=== PATIENT | female | born 2005 | race Caucasian/White ===

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

== ENCOUNTER 2025-01-16 21:33 | Emergency (ER) | payer OTHER, SELFPAY ==
--- NOTE | ~2025-01-16 | XR_ITS ---
CLINICAL HISTORY: fall pain 4 view facial bones Comparison: None provided Findings: Bones are intact. No sinus fluid. Mastoids are clear. No radiopaque foreign body. The visualized paranasal sinuses appear clear. Normal outline of the sella turcica. The orbital floors are intact. IMPRESSION: 1. No acute findings This document has been electronically signed by: Jd Camara MD on 01/16/2025 23:42:01
[2025-01-16 21:39] VITALS: BP 110/70; PULSE 115; O2SAT 96
[2025-01-16 21:41] VITALS: BP 106/64; PULSE 111; RESP 16; TEMP 36.4; O2SAT 97
[2025-01-16 21:44] VITALS: BP 101/69; PULSE 112; RESP 16; O2SAT 97; BMI 17.2
--- OUTSIDE RECORDS SUMMARY | 2025-01-16 22:09 | XMS_ITS ---
Author Name [facility] Organization Unknown Care Team Organization Name Specialty Phone Email Start Date End Da te [facility] SAYRA BROWN Primary Care 08/05/2022 11/17/2023 [facility] ANTONY TAO Primary Care 02/05/2022
--- OUTSIDE RECORDS SUMMARY | 2025-01-16 22:09 | XMS_ITS | Clinical Summary ---
Author Organization [facility] Address [address] [place] [id number] Phone Care Team Providers Care Baseball Hand Sewer Name Role Phone Unavailable Primary Care Provider Unavailabl e Immunizations Immunization Administration Dates Next Due DTaP / Hep B / IPV 2004 Hep B, ped/adol 2004 Hib (HbOC) 2004 Pneumococcal Conjugate 2004 Family History Relation Name Status Comments Father Alive Father: Alive a nd well Mother Alive Mother: Migrain es, Depression Social History Tobacco Use Types Packs/Day Years Used Date Smoking Tobacco: Never Assessed Comments Unknown Sex and Gender Information Value Date Recorded Sex Assigned at Not on file Legal Sex Female 4:11 PM EDT Gender Identity Not on file Sexual Orientation Not on file Plan of Treatment Health Maintenance Due Date Last Done Comments IPV Vaccines (2 of 3 - 4-dos e series) 2004 2004 Hepatitis B Vaccines (3 of 3 - 3-dose series) 01/15/2005 2004, 2004 MMR Vaccines (1 of 1 - Standard series) 2005 Varicella Vaccines (1 of 2 - 13+ 2-dose series) 2017 HPV Vaccines (1 - 3-dose series) 07/17/2019 Men B Vaccine (1 of 2 - Standard) 2020 DTaP,Tdap,and Td Vaccines (2 - Tdap) 2022 2004 Influenza Vaccines (#1) 2024 COVID-19 Vaccine (1 - 2024-2 6 season) 2024 HIB Vaccines Aged Out 2004 No longer eligi ble based on patient's age to complete this topic Pneumococcal Vaccine Aged Out 2004 No long er eligible based on patient's age to complete this topic Hepatitis A Vaccines Aged Out No long er eligible based on patient's age to complete this topic Meningococcal Vaccine Aged Out No kaylene beny eligible based on patient's age to complete this topic
--- OUTSIDE RECORDS SUMMARY | 2025-01-16 22:09 | XMS_ITS | Encounter Summary ---
Author Organization [facility] Address [address] [place] [address] Phone Care Team Providers Care Guitar Repairer Name Role Phone Chloe Santiago MD Primary Care Provider [phone] Encounter Details Date Type Department Care Team (Late st Contact Info) Description 11/14/2016 Conversion Encounter [facility] [place] [address] [place] [address] Social History Tobacco Use Types Packs/Day Years Used Date Smoking Tobacco: Never Assessed Comments Unknown Sex and Gender Information Value Date Recorded Sex Assigned at Not on file Legal Sex Female 4:11 PM EDT Gender Identity Not on file Sexual Orientation Not on file documented as of this encounter Plan of Treatment Not on file documented as of this encounter Visit Diagnoses Not on filedocumented in this encounter Care Teams Guitar Repairer Relationship Specialty Start Date End Date Chloe Santiago MD [address] [place] [address] PCP - General 11/08/16 09/22/22 documented as of this encounter
--- NOTE | 2025-01-16 22:29 | ED.ALCOHOL ---
HPI - Alcohol General Chief Complaint: ETOH/Substance Use Stated Complaint: ETOH INTOX,WALKED INTO WALL FROM [employer] Time Seen by Provider: 01/16/25 22:26 Source: patient Mode of arrival: ambulatory Limitations: no limitations History of Present Illness ED Provider: Jeovany KUMAR HPI narrative: The patient is a 19-year-old otherwise healthy female who presents to the ED via EMS after she accidentally walked into a wall and a dark onto the house. The patient admits she did drank 4 shots of vodka throughout the evening, denies other substance use. The patient reports she was walking and not running when she struck the wall. Patient developed pain in the nose with the associated epistaxis. The patient subsequently vomited prompting the facility/patient's friends friends to activate EMS. The patient denies loss of consciousness or anticoagulation, denies neck pain or headache. The patient's epistaxis resolved prior to arrival in the ED. Related Data Home Medications ?Medication ?Instructions ?Recorded ?Confirmed epinephrine 0.15 mg/0.3 mL 1 IM DIRECTED anaphylaxis 01/09/22 injection,auto-injector Previous Rx's ?Medication ?Instructions ?Recorded azithromycin 250 mg tablet See Rx Instructions PO .COMPLEX #6 01/01/22 tabs Allergies Allergy/AdvReac Type Severity Reaction Status Date / Time amoxicillin Allergy Intermediate Rash Verified 01/16/25 21:45 peanut Allergy Anaphylaxis Verified 01/16/25 21:46 Review of Systems Review of Systems: Yes all other systems are reviewed and are negative PMFSH Social History Social History (Updated 01/01/22 @ 08:33 by Sharee Escobedo [facility]) Household Members: Family Patient Tobacco Use Status: Never used Tobacco Smoked in Last 30 Days: No Use of substances other than those prescribed or required for medical reasons: No Advance Directives: No Advance Directives Information Provided: No Patient : No Physical Exam ED Vital Signs: Vital Signs - 24 hr 01/16/25 21:41 01/16/25 21:44 Temperature 97.5 F Pulse Rate 111 H 112 H Respiratory Rate 16 16 Blood Pressure 106/64 101/69 Pulse Oximetry 97 97 Oxygen Delivery Method Room Air Room Air BMI result Body Mass Index 17.2 CONSTITUTIONAL: The patient appears non-toxic, well nourished and in no acute distress. Vital signs as documented. HEAD: Atraumatic, normocephalic. EYES: EOMs intact, pupils equal and reactive to light, conjunctiva clear, no exudate. ENT: There is contusion and swelling noted to the bridge of the nose. Nares patent, no septal hematoma, there is dried blood noted from the left nostril, no active bleeding or discharge. Airway patent, no audible stridor, visible mucosa is pink and moist without noted lesions. NECK: Trachea is midline, no obvious masses or gross abnormalities. CHEST: Symmetric movement, normal appearance. LUNGS: LS present and CTAB, no w/r/r. Non-labored work of breathing. CARDIAC: Regular Rhythm, S1/S2 appreciated, no murmurs, rubs or gallops. ABDOMEN: Abdomen soft and non-tender x4 quadrants, no palpable masses or organomegaly. : Deferred. EXTREMITIES: Normal tone, moves all extremities spontaneously without reported pain. No obvious acute injury or deformity noted. NEURO: Alert and oriented x3, CN II-XII intact. Cerebellar Functioning intact. No sensory or motor deficits. Strength 5/5 x4. Speech clear and appropriate. PSYCH: normal affect, appropriate eye contact, fluid speech, with appropriate response to questioning. No reported suicidality or homicidality. SKIN: Warm, dry, color appropriate, normal turgor. No rashes noted. Medical Decision Making Medical Decision Making MDM Narrative: 12:04 AM 01/17/2025 (Mik KUMAR): The patient is a 19-year-old otherwise healthy female who presents to the ED via EMS after she accidentally walked into a wall and a dark onto the house. The patient admits she did drank 4 shots of vodka throughout the evening, denies other substance use. The patient reports she was walking and not running when she struck the wall. Patient developed pain in the nose with the associated epistaxis. The patient subsequently vomited prompting the facility/patient's friends friends to activate EMS. The patient denies loss of consciousness or anticoagulation, denies neck pain or headache. The patient's epistaxis resolved prior to arrival in the ED. On exam the patient has contusion of the bridge of the nose, however there is no unilateral deviation of the nose, no septal hematoma, no active epistaxis. The patient's neuro exam is benign, no focal deficit, no indication for CT imaging. The remainder of exam is benign. Facial bone x-ray show no evidence of nasal bone fracture. The patient's mother is present in the ED with her, and patient will be under her care this evening. Patient's mother states she is comfortable with plan for discharge and outpatient follow up. Patient will be treated with ibuprofen and Tylenol and discharged to her mother's care. Admission/Observation Consideration of admission/observation: Escalation of care including admission/observation considered Radiology Impression Discussion of test interpretation with radiology: I have reviewed the radiologist's reading. Radiologist Impression: 4 view facial bones Comparison: None provided Findings: Bones are intact. No sinus fluid. Mastoids are clear. No radiopaque foreign body. The visualized paranasal sinuses appear clear. Normal outline of the sella turcica. The orbital floors are intact. IMPRESSION: 1. No acute findings This document has been electronically signed by: Jd Camara MD on 01/16/2025 23:42:01 Discharge Plan Discharge Clinical Impression: Alcohol intoxication Qualifiers: Complication of substance-induced condition: uncomplicated Qualified Code(s): F10.920 - Alcohol use, unspecified with intoxication, uncomplicated Contusion of nose Qualifiers: Encounter type: initial encounter Qualified Code(s): S00.33XA - Contusion of nose, initial encounter Patient Disposition: Home, Self-Care Instructions: Alcohol Intoxication (ED), Nasal Contusion (ED) Additional Instructions: Thank you for choosing [facility] Emergency Department for your care today. Thankfully your x-ray and exam today show no evidence of a nasal bone fracture or a nasal septum hematoma. Your neurologic exam is reassuring and there was no indication for advanced imaging. At this time there is no indication for admission to the hospital or continued ED observation, and it is safe to discharge you home. Your injury did result in a contusion of your nose. You may have additional pain and swelling in the next few days. You should take alternating (staggered) doses of ibuprofen 600mg and Tylenol 1000mg every 4 hours as needed for any additional pain. Please apply ice for 20 minutes every hour to reduce swelling and discomfort. If you do not have a primary care physician, please call the [facility] at [phone] to establish a new primary care physician. While waiting to establish your new primary care physician, you can call our [facility] at [phone] for non-emergency needs. Please return to the emergency department if you develop a severe or sudden change in your symptoms, a fever over 100.4 that does not improve with Tylenol or Ibuprofen, recurrent vomiting, or any other new or worsening symptoms or concerns. Prescriptions: No Action azithromycin 250 mg tablet See Rx Instructions PO .COMPLEX Qty: 6 0RF Rx Instructions: For 250 mg dose pack: take 500 mg today (day 1), then 250 mg for 4 days (days 2-5) PO epinephrine 0.15 mg/0.3 mL auto-injector 1 IM DIRECTED Referrals: Farida Verde APRN [Primary Care Provider, Pediatrics] Clinical Impression: Alcohol intoxication; Contusion of nose Print Language: Telugu
--- NOTE | 2025-01-16 22:33 | PC.NURSE ---
Mild bleeding noted from nose, gauze provided as well as ice pack. Awaiting imaging and provider eval.
[2025-01-17] VITALS: BP 109/77; PULSE 100; RESP 16; TEMP 36.3; O2SAT 99
[2025-01-17 00:19] VITALS: BP 108/77; PULSE 88; RESP 17; TEMP 36.7; O2SAT 99
== END 2025-01-17 00:21 | disposition home or self-care (01) ==
PROVIDERS: Emergency Provider Emergency Medicine; PCP Nurse Practitioner Pediatrics
DX: S00.33XA Contusion of nose, initial encounter (principal); W22.01XA Walked into wall, initial encounter; Y93.9 Activity, unspecified; Y92.9 Unspecified place or not applicable; F10.920 Alcohol use, unspecified with intoxication, uncomplicated
CPT/HCPCS: 70150; 99283; 99284

== ENCOUNTER → 2025-01-16 22:59 | Outpatient (BNV) | payer OTHER, SELFPAY | PROVIDERS: Emergency Provider Emergency Medicine; PCP Nurse Practitioner Pediatrics; Visit Provider Radiology Diagnostic Radiology | DX: R51.9 Headache, unspecified (principal); W19.XXXA Unspecified fall, initial encounter | CPT/HCPCS: 70150 ==